=== PATIENT | female | born 1970 | race Caucasian/White ===

== ENCOUNTER 2024-01-01 09:47 | Inpatient (IN) | payer MEDICAID ==
[~2024-01-01] VITALS: Ht 162.6 cm; Wt 83.3 kg
[2024-01-01] MEDS: normal saline 1000ml 1,000 ML IV ONE (12:12)
[2024-01-01] MEDS: gabapentin 300mg capsule PO ONE (12:12)
[2024-01-01 12:19] LABS: BILIRUBIN,URINE SMALL (Neg); CLARITY,URINE CLOUDY (Clear); COLOR,URINE AMBER (Yellow); GLUCOSE, URINE NEGATIVE (Neg); KETONES,URINE TRACE mg/dl (Neg); LEUKOCYTE ESTERASE ,URINE MODERATE (Neg); NITRITES, URINE POSITIVE (Neg); OCCULT BLOOD,URINE SMALL (Neg); PROTEIN,URINE 30 mg/dl (Neg); UROBILINOGEN,URINE 0.2 E.U/dL (0.2-1.0)
[2024-01-01 12:21] LABS: BASOPHILS # (AUTO) 0.1 X10'3 (0-0.2); BASOPHILS % (AUTO) 0.7 % (0-1); EOSINOPHILS # (AUTO) 0.2 X10'3 (0-0.9); EOSINOPHILS % (AUTO) 1.6 % (0-6); HEMATOCRIT 39.9 % (35.0-45.0); HEMOGLOBIN 13.8 g/dl (12.0-16.0); LYMPHOCYTES # (AUTO) 2.7 X10'3 (1.1-4.8); LYMPHOCYTES % (AUTO) 27.1 % (21-51); MEAN CORPUSCULAR HEMOGLOBIN 34.4 PG (27.0-31.0); MEAN CORPUSCULAR HGB CONC 34.6 g/dL (33.0-36.5); MEAN CORPUSCULAR VOLUME 99.4 FL (78-98); MEAN PLATELET VOLUME 9.8 FL (7.4-10.4); MONOCYTES # (AUTO) 1.2 X10'3 (0-0.9); MONOCYTES % (AUTO) 11.8 % (2-12); NEUTROPHILS # (AUTO) 5.9 X10'3 (1.8-7.7); NEUTROPHILS % (AUTO) 58.8 % (42-75); PLATELET COUNT 96 X10'3 (140-440); RED BLOOD COUNT 4.01 X10'6 (4.20-5.60); WHITE BLOOD COUNT 10.1 X10'3 (4.5-11.0)
[2024-01-01 12:25] LABS: UA COLLECTION TYPE OTHER
[2024-01-01 12:29] LABS: CAL OXALATE CRYSTALS 4+ /HPF (NEGATIVE); WBC,URINE TNTC /HPF (0-4)
[2024-01-01 12:33] LABS: BACTERIA,URINE 4+ /HPF (Neg)
[2024-01-01 12:33] LABS: APTT 31 SECONDS (22-32); INR 1.4 INR; PROTHROMBIN TIME 14.8 SECONDS (9.0-12.0)
[2024-01-01 12:34] LABS: SQUAMOUS EPITHELIAL CELL,UR FEW /LPF (FEW); TRANSITIONAL EPI CELLS,URINE FEW /HPF
[2024-01-01 12:35] LABS: URINE AMPHETAMINE SCREEN NEGATIVE (Neg); URINE BARBITUATE SCREEN NEGATIVE (Neg); URINE BENZODIAZEPINES SCREEN NEGATIVE (Neg); URINE CANNABINOID SCREEN NEGATIVE (Neg); URINE COCAINE SCREEN NEGATIVE (Neg); URINE METHADONE SCREEN NEGATIVE (Neg); URINE PHENCYCLIDINE SCREEN NEGATIVE (Neg)
[2024-01-01 12:41] LABS: LACTIC SEPSIS 1.3 MMOL/L (0.4-2.0)
[2024-01-01 12:51] LABS: ALANINE AMINOTRANSFERASE 18 U/L (12-78); ALBUMIN/GLOBULIN RATIO 0.8 (1.1-1.5); ALKALINE PHOSPHATASE 127 IU/L (46-116); ANION GAP 8 (8-16); ASPARTATE AMINO TRANSFERASE 28 U/L (10-37); BILIRUBIN,TOTAL 3.1 MG/DL (0.1-1.0); BLOOD UREA NITROGEN 4 MG/DL (7-18); BUN/CREATININE RATIO 9.5 (10.0-20.0); CHLORIDE 102 MMOL/L (99-107); CREATININE 0.42 MG/DL (0.40-0.90); GLUCOSE 138 MG/DL (70-104); POTASSIUM 3.4 MMOL/L (3.5-5.1); SODIUM 134 MMOL/L (135-145); TOTAL CARBON DIOXIDE 23.6 MMOL/L (24-32); TOTAL PROTEIN 6.9 G/DL (6.4-8.2); eCRCL 132 ML/MIN; eGFR > 90 ML/MIN
[2024-01-01 12:54] LABS: BILIRUBIN,DIRECT 1.4 MG/DL (0-0.3); C-REACTIVE PROTEIN 0.41 MG/DL (0.0-0.5); ETHANOL < 10 MG/DL (<10); LIPASE 17 U/L (16-77); MAGNESIUM 1.8 MG/DL (1.5-2.4); THYROID STIMULATING HORMONE 1.34 ulU/ml (0.34-4.50)
[2024-01-01] MEDS: CefTRIAXone/D5W-Rocephin 1gm 50 ML IV ONE (13:58)
[2024-01-01] MEDS: HYDROmorphone 1 mg/ml syringe IV ONE (15:27)
[2024-01-01] MEDS ORDERED: NORMAL SALINE IV ONE (17:00)
[2024-01-01] MEDS ORDERED: FOSPHENYTOIN IV ONE (17:00)
[2024-01-01] MEDS ORDERED: mag hydrox/Alum hydrox/simeth 30ml oral suspension PO PRN (18:40)
[2024-01-01] MEDS ORDERED: magnesium 4gm in 100ml NS 100 ML IV PRN (18:40)
[2024-01-01] MEDS ORDERED: ondansetron/PF 4mg/2ml inj IV PRN (18:40)
[2024-01-01] MEDS ORDERED: HYDROcodone/acetaminophen 10/325mg tab PO PRN (18:40)
[2024-01-01] MEDS ORDERED: magnesium hydroxide 30ml (MOM) UD suspension PO PRN (18:40)
[2024-01-01] MEDS ORDERED: potassium Cl 20 mEq SR tablet PO PRN (18:40)
[2024-01-01] MEDS ORDERED: HYDROcodone/acetaminophen 5mg/325mg tablet PO PRN (18:40)
[2024-01-01] MEDS ORDERED: magnesium 2GM in 50ml NS 50 ML IV PRN (18:40)
[2024-01-01] MEDS ORDERED: potassium Cl 40MEQ/1/2NS 520ml 520 ML IV PRN (18:40)
[2024-01-01] MEDS ORDERED: LACT10SO3 PO (18:53)
[2024-01-01] MEDS ORDERED: ONDA-103 PO (18:53)
[2024-01-01] MEDS: spironolactone 25 MG tablet PO SCH (19:00)
[2024-01-01] MEDS: multivitamins, therapeutics tablet PO SCH (19:05)
[2024-01-01 19:16] LABS: PHOSPHORUS 3.9 MG/DL (2.3-4.5)
[2024-01-01] MEDS: heparin, porcine 5000 units/ml vial SQ SCH (20:00)
[2024-01-01] MEDS: K and/or MAG REPLACEMENT MC SCH (20:00)
[2024-01-01] MEDS: CefTRIAXone/D5W-Rocephin 1gm 50 ML IV SCH (20:26)
[2024-01-01] MEDS: morphine 2 MG/ML inj. syringe IV PRN (20:26)
[2024-01-01] MEDS: gabapentin 100mg capsule PO SCH (20:26)
[2024-01-01] MEDS: normal saline 1000ml 1,000 ML IV SCH (20:26)
[2024-01-01] MEDS: lactulose 20gm/30ml cup PO SCH (20:30)
[2024-01-01 21:41] VITALS: BP 117/72; PULSE 83; RESP 22; TEMP 98.8; O2SAT 96
[2024-01-02] VITALS (11 sets, daily range): BP systolic 91–115; BP diastolic 54–69; PULSE 72–88; RESP 12–21; TEMP 97–98.7; O2SAT 93–98
[2024-01-02 07:52] LABS: BASOPHILS # (AUTO) 0.2 X10'3 (0-0.2); EOSINOPHILS # (AUTO) 0.3 X10'3 (0-0.9); EOSINOPHILS % (AUTO) 2.9 % (0-6); HEMATOCRIT 36.9 % (35.0-45.0); HEMOGLOBIN 12.8 g/dl (12.0-16.0); LYMPHOCYTES # (AUTO) 2.7 X10'3 (1.1-4.8); LYMPHOCYTES % (AUTO) 26.8 % (21-51); MEAN CORPUSCULAR HEMOGLOBIN 34.3 PG (27.0-31.0); MEAN CORPUSCULAR HGB CONC 34.6 g/dL (33.0-36.5); MEAN CORPUSCULAR VOLUME 99.3 FL (78-98); MEAN PLATELET VOLUME 9.6 FL (7.4-10.4); MONOCYTES # (AUTO) 1.1 X10'3 (0-0.9); MONOCYTES % (AUTO) 10.9 % (2-12); NEUTROPHILS # (AUTO) 5.9 X10'3 (1.8-7.7); NEUTROPHILS % (AUTO) 57.4 % (42-75); PLATELET COUNT 81 X10'3 (140-440); RED BLOOD COUNT 3.72 X10'6 (4.20-5.60); RED CELL DISTRIBUTION WIDTH 13.1 % (11.5-14.5); WHITE BLOOD COUNT 10.2 X10'3 (4.5-11.0)
[2024-01-02 08:29] LABS: ALANINE AMINOTRANSFERASE 17 U/L (12-78); ALBUMIN 2.7 G/DL (3.4-5.0); ALBUMIN/GLOBULIN RATIO 0.8 (1.1-1.5); ALKALINE PHOSPHATASE 116 IU/L (46-116); ANION GAP 10 (8-16); ASPARTATE AMINO TRANSFERASE 34 U/L (10-37); BILIRUBIN,TOTAL 2.5 MG/DL (0.1-1.0); BLOOD UREA NITROGEN 4 MG/DL (7-18); BUN/CREATININE RATIO 11.8 (10.0-20.0); CALCIUM 8.6 MG/DL (8.5-10.1); CHLORIDE 104 MMOL/L (99-107); CREATININE 0.34 MG/DL (0.40-0.90); GLUCOSE 118 MG/DL (70-104); MAGNESIUM 1.7 MG/DL (1.5-2.4); POTASSIUM 3.4 MMOL/L (3.5-5.1); SODIUM 137 MMOL/L (135-145); TOTAL CARBON DIOXIDE 23.2 MMOL/L (24-32); TOTAL PROTEIN 6.3 G/DL (6.4-8.2); eCRCL 163 ML/MIN; eGFR > 90 ML/MIN
[2024-01-02 09:44] LABS: APTT 31 SECONDS (22-32); INR 1.4 INR; PROTHROMBIN TIME 14.9 SECONDS (9.0-12.0)
[2024-01-02] MEDS: albumin (human) 25% 100 ML IV solution IV ONE (11:30)
[2024-01-02 12:37] LABS: BFSOURCE ASCITES FLD
[2024-01-02 12:38] LABS: BF MESOTHELIAL CELLS FEW; BF RBC COUNT 108 /CU MM; BF WBC COUNT 261 /CU MM (0-1000); BFAPPEAR CLOUDY; BFCOLOR YELLOW; BFVOLUME 46 ML; LYMPHOCYTES,BODY FLUID 87 %; MONOCYTES,BODY FLUID 6 %; NEUTROPHILS,BODY FLUID 7 %
[2024-01-02 12:46] LABS: GLUCOSE,BODY FLUID 140 MG/DL; LDH,BODY FLUID 43 U/L
[2024-01-02 13:04] LABS: TOTAL PROTEIN,BODY FLUID < 2.0 G/DL
[2024-01-02] MEDS: potassium Cl 20 mEq SR tablet PO PRN (13:19)
[2024-01-02] MEDS: traMADol 50MG tablet PO PRN (14:55)
[2024-01-02] MEDS: morphine 2 MG/ML inj. syringe IV PRN (17:08)
[2024-01-02] MEDS: NUT.TX.GLUC.INTOLER,LAC-FR,SOY (GLUCERNA) 237 ML PO SCH (18:05)
[2024-01-03 02:00] VITALS: BP 109/59; PULSE 82; RESP 17; TEMP 97.7; O2SAT 94
[2024-01-03 07:08] VITALS: BP 111/64; PULSE 83; RESP 15; TEMP 97.5; O2SAT 95
[2024-01-03 07:09] LABS: BASOPHILS # (AUTO) 0.1 X10'3 (0-0.2); BASOPHILS % (AUTO) 0.8 % (0-1); EOSINOPHILS # (AUTO) 0.2 X10'3 (0-0.9); EOSINOPHILS % (AUTO) 2.5 % (0-6); HEMATOCRIT 37.9 % (35.0-45.0); HEMOGLOBIN 13.1 g/dl (12.0-16.0); LYMPHOCYTES # (AUTO) 2.8 X10'3 (1.1-4.8); LYMPHOCYTES % (AUTO) 28.8 % (21-51); MEAN CORPUSCULAR HEMOGLOBIN 34.2 PG (27.0-31.0); MEAN CORPUSCULAR HGB CONC 34.4 g/dL (33.0-36.5); MEAN CORPUSCULAR VOLUME 99.3 FL (78-98); MEAN PLATELET VOLUME 10.2 FL (7.4-10.4); MONOCYTES % (AUTO) 10.4 % (2-12); NEUTROPHILS # (AUTO) 5.5 X10'3 (1.8-7.7); NEUTROPHILS % (AUTO) 57.5 % (42-75); PLATELET COUNT 79 X10'3 (140-440); RED BLOOD COUNT 3.82 X10'6 (4.20-5.60); RED CELL DISTRIBUTION WIDTH 12.9 % (11.5-14.5); WHITE BLOOD COUNT 9.6 X10'3 (4.5-11.0)
[2024-01-03 07:27] LABS: ALANINE AMINOTRANSFERASE 16 U/L (12-78); ALBUMIN 2.9 G/DL (3.4-5.0); ALBUMIN/GLOBULIN RATIO 0.8 (1.1-1.5); ALKALINE PHOSPHATASE 116 IU/L (46-116); ANION GAP 11 (8-16); ASPARTATE AMINO TRANSFERASE 34 U/L (10-37); BILIRUBIN,TOTAL 2.7 MG/DL (0.1-1.0); BLOOD UREA NITROGEN 5 MG/DL (7-18); BUN/CREATININE RATIO 15.2 (10.0-20.0); CALCIUM 8.6 MG/DL (8.5-10.1); CHLORIDE 103 MMOL/L (99-107); CREATININE 0.33 MG/DL (0.40-0.90); GLUCOSE 113 MG/DL (70-104); MAGNESIUM 1.7 MG/DL (1.5-2.4); POTASSIUM 3.8 MMOL/L (3.5-5.1); SODIUM 136 MMOL/L (135-145); TOTAL CARBON DIOXIDE 22.5 MMOL/L (24-32); TOTAL PROTEIN 6.5 G/DL (6.4-8.2); eCRCL 168 ML/MIN; eGFR > 90 ML/MIN
[2024-01-03] MEDS: gabapentin 100mg capsule PO SCH (12:35)
[2024-01-03] MEDS: oxyCODONE IR 5mg (immed. release) tablet PO PRN (12:35)
[2024-01-03 12:43] VITALS: BP 134/69; PULSE 86; RESP 16; TEMP 99.4; O2SAT 97
[2024-01-03 16:50] LABS: HBSAG SCREEN Negative (Negative); HEPATITIS C VIRUS ANTIBODY Non Reactive (Non Reactive)
[2024-01-03 18:00] VITALS: BP 109/66; PULSE 72; RESP 22; TEMP 97.7; O2SAT 97
[2024-01-03 20:00] VITALS: RESP 22; O2SAT 95
[2024-01-03 22:00] VITALS: BP 118/67; PULSE 83; RESP 20; TEMP 97.8; O2SAT 97
[2024-01-04 02:00] VITALS: BP 116/69; PULSE 93; RESP 19; TEMP 97.8; O2SAT 97
[2024-01-04 06:00] VITALS: BP 128/79; PULSE 85; RESP 14; TEMP 97.7; O2SAT 96
[2024-01-04 07:22] LABS: BASOPHILS # (AUTO) 0.1 X10'3 (0-0.2); BASOPHILS % (AUTO) 0.8 % (0-1); EOSINOPHILS # (AUTO) 0.3 X10'3 (0-0.9); EOSINOPHILS % (AUTO) 2.6 % (0-6); HEMOGLOBIN 13.3 g/dl (12.0-16.0); LYMPHOCYTES # (AUTO) 2.9 X10'3 (1.1-4.8); LYMPHOCYTES % (AUTO) 26.7 % (21-51); MEAN CORPUSCULAR HEMOGLOBIN 33.9 PG (27.0-31.0); MEAN CORPUSCULAR HGB CONC 34.1 g/dL (33.0-36.5); MEAN CORPUSCULAR VOLUME 99.4 FL (78-98); MONOCYTES # (AUTO) 1.3 X10'3 (0-0.9); MONOCYTES % (AUTO) 11.9 % (2-12); NEUTROPHILS # (AUTO) 6.3 X10'3 (1.8-7.7); PLATELET COUNT 89 X10'3 (140-440); RED BLOOD COUNT 3.93 X10'6 (4.20-5.60); WHITE BLOOD COUNT 10.9 X10'3 (4.5-11.0)
[2024-01-04 07:44] LABS: ALANINE AMINOTRANSFERASE 23 U/L (12-78); ALBUMIN/GLOBULIN RATIO 0.8 (1.1-1.5); ALKALINE PHOSPHATASE 117 IU/L (46-116); ANION GAP 9 (8-16); ASPARTATE AMINO TRANSFERASE 36 U/L (10-37); BILIRUBIN,TOTAL 2.7 MG/DL (0.1-1.0); BLOOD UREA NITROGEN 5 MG/DL (7-18); BUN/CREATININE RATIO 13.2 (10.0-20.0); CALCIUM 8.8 MG/DL (8.5-10.1); CHLORIDE 102 MMOL/L (99-107); CREATININE 0.38 MG/DL (0.40-0.90); GLUCOSE 126 MG/DL (70-104); MAGNESIUM 1.8 MG/DL (1.5-2.4); SODIUM 136 MMOL/L (135-145); TOTAL CARBON DIOXIDE 25.2 MMOL/L (24-32); TOTAL PROTEIN 6.7 G/DL (6.4-8.2); eCRCL 146 ML/MIN; eGFR > 90 ML/MIN
[2024-01-04 11:00] VITALS: BP 126/76; PULSE 92; RESP 14; TEMP 98.1; O2SAT 95
[2024-01-04 14:42] VITALS: RESP 16
== END 2024-01-04 16:57 | DRG 280 ==
LOC: ER 09:47 → ED HOLD 18:45 → PCU 3S 20:41
PROVIDERS: ADMIT Family Medicine; ATTEND Family Medicine
PROC: 0W9G3ZZ Drainage of Peritoneal Cavity, Percutaneous Approach (ICD-10-PCS; principal; 2024-01-02)
DX: K70.31 Alcoholic cirrhosis of liver with ascites (principal); G93.41 Metabolic encephalopathy; N39.0 Urinary tract infection, site not specified; M54.50 Low back pain, unspecified; G89.29 Other chronic pain; E87.6 Hypokalemia; D69.6 Thrombocytopenia, unspecified; Z88.0 Allergy status to penicillin; Z88.6 Allergy status to analgesic agent; Z79.899 Other long term (current) drug therapy
CPT/HCPCS: 36415; 49083; 72146; 72148; 80048; 80053; 80076; 80305; 80320; 81001; 82103; 82140; 82945; 82948; 83605; 83615; 83690; 83735; 84100; 84145; 84157; 84443; 85025; 85610; 85730; 86140; 86803; 87040; 87070; 87077; 87081; 87088; 87186; 87340; 87522; 89051; 93005; 96374; 96375; 97161; 97530; 99285; A6250; C1729; G0378; J0696; J1170; J2270; J7030; P9047

== ENCOUNTER 2024-03-29 18:03 | Emergency (ER) | payer MEDICAID ==
[~2024-03-29] VITALS: Ht 162.6 cm; Wt 97.0 kg
[~2024-03-29 18:03] MED LIST: LACT10SO3 PO; ONDA-103 PO
--- NOTE | 2024-03-29 18:45 | NUR ---
patient is 10/10 umbilical pain; patient is crying and needs medical attention; patient has history of peripheral neuropathy occaasional pain in legs to be specific
[2024-03-29] MEDS: normal saline 1000ML IV soln IVB ONE (18:59)
[2024-03-29] MEDS: ondansetron/PF 4mg/2ml inj IV ONE ×2 (19:02→19:41)
[2024-03-29 19:13] LABS: EOSINOPHILS # (AUTO) 0.1 X10'3 (0-0.9); EOSINOPHILS % (AUTO) 1.5 % (0-6)
[2024-03-29 19:15] LABS: BASOPHILS # (AUTO) 0.1 X10'3 (0-0.2); BASOPHILS % (AUTO) 0.9 % (0-1); HEMATOCRIT 42.7 % (35.0-45.0); HEMOGLOBIN 14.8 g/dl (12.0-16.0); LYMPHOCYTES # (AUTO) 1.8 X10'3 (1.1-4.8); LYMPHOCYTES % (AUTO) 26.1 % (21-51); MEAN CORPUSCULAR HEMOGLOBIN 32.3 PG (27.0-31.0); MEAN CORPUSCULAR HGB CONC 34.7 g/dL (33.0-36.5); MEAN CORPUSCULAR VOLUME 93.2 FL (78-98); MEAN PLATELET VOLUME 9.3 FL (7.4-10.4); MONOCYTES # (AUTO) 0.8 X10'3 (0-0.9); MONOCYTES % (AUTO) 11.7 % (2-12); NEUTROPHILS # (AUTO) 4.2 X10'3 (1.8-7.7); NEUTROPHILS % (AUTO) 59.8 % (42-75); PLATELET COUNT 78 X10'3 (140-440); RED BLOOD COUNT 4.58 X10'6 (4.20-5.60)
[2024-03-29 19:21] LABS: LIPASE 23 U/L (16-77)
[2024-03-29] MEDS ORDERED: iohexol 300mg/ml 100ml inj. ONE (19:30)
[2024-03-29] MEDS: morphine 4 MG/ML inj SYRINge IV ONE ×2 (19:41→23:52)
[2024-03-29 20:22] LABS: ALANINE AMINOTRANSFERASE 14 U/L (12-78); ALBUMIN 2.6 G/DL (3.4-5.0); ALBUMIN/GLOBULIN RATIO 0.7 (1.1-1.5); ALKALINE PHOSPHATASE 99 IU/L (46-116); ANION GAP 10 (8-16); ASPARTATE AMINO TRANSFERASE 40 U/L (10-37); BILIRUBIN,TOTAL 2.6 MG/DL (0.1-1.0); BLOOD UREA NITROGEN 4 MG/DL (7-18); CALCIUM 8.7 MG/DL (8.5-10.1); CHLORIDE 107 MMOL/L (99-107); GLUCOSE 126 MG/DL (70-104); SODIUM 140 MMOL/L (135-145); TOTAL CARBON DIOXIDE 23.1 MMOL/L (24-32); TOTAL PROTEIN 6.5 G/DL (6.4-8.2); eCRCL 111 ML/MIN; eGFR > 90 ML/MIN
[2024-03-29 20:35] LABS: POTASSIUM 3.9 MMOL/L (3.5-5.1)
--- NOTE | 2024-03-30 00:32 | NUR ---
VERBAL ORDER GIVEN FOR 600MG GABAPENTIN ORAL NOW BY ED ATTENDING
[2024-03-30] MEDS: gabapentin 300mg capsule PO STA (00:43)
--- NOTE | 2024-03-30 00:59 | NUR ---
patient unable to give urine sample via straigth cath; pure wick was placed; waiting new orders
[2024-03-30 02:32] LABS: BILIRUBIN,URINE SMALL (Neg); CLARITY,URINE CLEAR (Clear); COLOR,URINE AMBER (Yellow); GLUCOSE, URINE NEGATIVE (Neg); KETONES,URINE NEGATIVE (Neg); LEUKOCYTE ESTERASE ,URINE NEGATIVE (Neg); OCCULT BLOOD,URINE NEGATIVE (Neg); PH,URINE 5.5 (4.8-8.0); PROTEIN,URINE NEGATIVE (Neg); UROBILINOGEN,URINE 0.2 E.U/dL (0.2-1.0)
[2024-03-30 02:52] LABS: UA COLLECTION TYPE VOIDED
[2024-03-30 02:55] LABS: NITRITES, URINE NEGATIVE (Neg)
[2024-03-30 03:29] VITALS: BP 102/63; PULSE 61; RESP 16; TEMP 98.3; O2SAT 90
== END 2024-03-30 04:54 | disposition home or self-care (01) ==
LOC: ER 18:04
DX: K42.9 Umbilical hernia without obstruction or gangrene (principal); R18.8 Other ascites; R10.84 Generalized abdominal pain; Z88.0 Allergy status to penicillin; Z88.6 Allergy status to analgesic agent; Z79.899 Other long term (current) drug therapy
CPT/HCPCS: 36415; 74177; 80053; 81003; 83690; 84484; 85025; 93005; 96361; 96374; 96375; 96376; 99285; J2270; J2405; J7030; Q9967